=== PATIENT | female | born 1965 ===

== ENCOUNTER 2017-11-13 08:54 | Day surgery (SDC) | payer OTHER ==
[2017-11-13 09:33] VITALS: BMI 28.0
[2017-11-13] MEDS ORDERED: Lactated Ringer's 500 ML IV ONE (09:42)
[2017-11-13 09:52] VITALS: O2SAT 100
[2017-11-13] MEDS ORDERED: Midazolam 2 MG/2 ML VIAL ONE (10:10)
[2017-11-13] MEDS ORDERED: Propofol 10 mg/ml Inj (20 ML) ONE (10:10)
[2017-11-13 12:05] VITALS: BP 117/74; PULSE 71; RESP 12; TEMP 97.1
== END 2017-11-13 14:19 | disposition home or self-care (01) ==
LOC: H.ENDO 08:54
PROVIDERS: ATTEND Internal Medicine Gastroenterology
DX: Z12.11 Encounter for screening for malignant neoplasm of colon (principal); E11.9 Type 2 diabetes mellitus without complications; E78.5 Hyperlipidemia, unspecified; K64.0 First degree hemorrhoids; K22.8 Other specified diseases of esophagus; K31.7 Polyp of stomach and duodenum; K31.89 Other diseases of stomach and duodenum; K29.70 Gastritis, unspecified, without bleeding
CPT/HCPCS: 43239; 43251; 45378; 82948; 88305; J2001; J2250; J2704; J7120